=== PATIENT | female | born 1950 | race Caucasian/White ===

== ENCOUNTER → 2016-07-12 13:51 | Outpatient (CLI) | payer MEDICARE, BC ==
[2013-08-13 06:56] VITALS: BMI 22.0
[~2016-07-12 13:51] MED LIST: CALCIUM/MAGNESIUM; MULTI-DAY VITAM1 TAB PO; NORCO 10/325 TA1 TA1 PO
== END | disposition home or self-care (01) ==
LOC: D.CT 13:51
DX: R10.9 Unspecified abdominal pain (principal)

== ENCOUNTER → 2017-06-25 10:35 | Outpatient (CLI) | payer MEDICARE, BC ==
[2013-08-13 06:56] VITALS: BMI 22.0
== END | disposition home or self-care (01) ==
LOC: D.MRI 10:35
DX: M54.2 Cervicalgia (principal)